=== PATIENT | female | born 1955 | race Caucasian/White ===

== ENCOUNTER 2023-04-17 22:02 | Emergency (ER) | payer MEDICARE, SELFPAY ==
[2023-04-17 22:06] VITALS: BP 183/92; PULSE 84; RESP 18; TEMP 36.8; O2SAT 98; BMI 23.0
[2023-04-17 22:30] VITALS: PULSE 76
--- NOTE | 2023-04-17 22:53 | ED_ITS ---
HPI - Arrhythmia/Palpitations General Chief Complaint: Arrhythmia/Palpitations Stated Complaint: heart is racing Time Seen by Provider: 04/17/23 22:19 History of Present Illness HPI narrative: This 67-year-old female comes in reporting feeling that her heart rate is increased. She states that there are times where it is pounding and seems to be going fast. She does not report any significant irregularity in its rhythm. She does report anxiety symptoms. She also wonders if this could be happening after taking alcohol. She does not drink excessive amounts but wonders if 1 or 2 beers might trigger such symptoms. However she has not had any alcohol for the past couple days or more. At the time I was visiting her she stated that she was now feeling this increased heart rate that she was describing. A monitor was showing normal sinus rhythm and rate at around 75-80 beats per minute. She does not report any chest pain or exercise intolerance. She did have 2 of her 4 parathyroid glands removed a few months ago and states that lab results in this regard are normal. Related Data Home Medications Medication Instructions Recorded Confirmed amlodipine 5 mg tablet 5 mg PO DAILY 04/17/23 04/17/23 furosemide 20 mg tablet 20 mg PO QAM 04/17/23 04/17/23 potassium chloride 10 mEq 10 meq PO DAILY 04/17/23 04/17/23 tablet,extended release rosuvastatin 5 mg tablet 5 mg PO QPM 04/17/23 04/17/23 triamterene 75 1 tab PO QAM 04/17/23 04/17/23 mg-hydrochlorothiazide 50 mg tablet Allergies Allergy/AdvReac Type Severity Reaction Status Date / Time Sulfa (Sulfonamide AdvReac Verified 04/17/23 22:09 Antibiotics) Review of Systems Status of ROS: Reports: 10 or more systems reviewed and unremarkable except as noted in History and below Narrative: Constitutional: No fevers, no weight gain or loss. Eyes: No discharge. No vision changes. HENT: No congestion, no sore throat, no ear pain. Cardiovascular: No chest pain. She reports palpitations and increased heart rate at times. Respiratory: No shortness of breath, no wheezes, no cough. Gastrointestinal: No abdominal pain, no vomiting, no diarrhea. Genitourinary: No dysuria, no hematuria. Musculoskeletal: Normal range of motion. Skin: No rashes, no pruritis. Neurological: No dizziness, weakness, sensory change, speech change. Endo/Heme/Allergies: No bruising or bleeding. No polydipsia. Pysch: no suicidality, no anxiety, no insomnia. All other systems reviewed and are negative. Exam Narrative: Exam Narrative: Constitutional: Well-developed, well-nourished, no acute distress. HEENT: Normocephalic, atraumatic. Neck: Normal range of motion. Nontender. Supple. Heart: Regular. No murmurs. Normal rate. Intact distal pulses. Lungs: Clear to auscultation. No chest discomfort. No wheezes, rhonchi, or rales. Abdomen: Normal bowel sounds. Nontender. No rebound tenderness. Genitalia: Deferred. Back: No midline tenderness. Normal range of motion. Extremities: Normal range of motion. No injury. Skin: Intact. No rash. Warm. No erythema or pallor. Neurologic: No altered sensation. No weakness. Alert and oriented. Psychiatric: No suicidality. No insomnia. Nursing notes and vitals signs are reviewed. Const: Vital Signs, click to edit/add: Vital Signs - 24 hr 04/17/23 22:06 Temperature 98.3 F Pulse Rate [Left P ulse Oximeter] 84 Respiratory Rate 18 Blood Pressure [Ri ght Upper Arm] 183/92 H Pulse Oximetry 98 Oxygen Delivery Me thod Room Air Course Vital Signs Vital signs: Initial Vital Signs Temperature 98.3 F 04/17/23 22:06 Temperature Source Temporal Artery Scan 04/17/23 22:06 Pulse Rate 84 04/17/23 22:06 Respiratory Rate 18 04/17/23 22:06 Blood Pressure 183/92 H 04/17/23 22:06 Blood Pressure Mean 122 H 04/17/23 22:06 Blood Pressure Position Sitting 04/17/23 22:06 Pulse Oximetry 98 04/17/23 22:06 Oxygen Delivery Method Room Air 04/17/23 22:06 Vital Signs Temperature 98.3 F 04/17/23 22:06 Pulse Rate 84 04/17/23 22:06 Respiratory Rate 18 04/17/23 22:06 Blood Pressure 183/92 H 04/17/23 22:06 Pulse Oximetry 98 04/17/23 22:06 Oxygen Delivery Method Room Air 04/17/23 22:06 Temperature 98.3 F 04/17/23 22:06 Pulse Rate 84 04/17/23 22:06 Respiratory Rate 18 04/17/23 22:06 Blood Pressure 183/92 H 04/17/23 22:06 Pulse Oximetry 98 04/17/23 22:06 Oxygen Delivery Method Room Air 04/17/23 22:06 MDM - Arrhythmia/Palpitations MDM Narrative Medical decision making narrative: This patient has feelings of palpitations that she is sometimes more aware of at night when she is remaining still. EKG today shows normal sinus rhythm and rate. I had discussion with the patient about various causes of feeling of palpitations. She is reassured with the EKG and vital signs that are measured here today. I did discuss other lab and imaging options which she declined in a process of shared decision making. I did state that there is a value in wearing a monitor such as a Holter monitor or Zio patch. The patient does have an appointment with her primary physician tomorrow where these options can be explored further. ECG Data Attestation: I personally reviewed and interpreted this ECG as follows: Interpretation: Normal sinus rhythm. Rate is 81 beats per minute. There are no ST or T-wave abnormalities. Discharge Plan Discharge Clinical Impression: Palpitations Condition: Stable Additional Instructions: Follow-up with primary physician tomorrow as scheduled and consider Holter monitor or Zio patch. Return if worsening. Prescriptions: No Action potassium chloride 10 mEq tablet extended release 10 meq PO DAILY amlodipine 5 mg tablet 5 mg PO DAILY furosemide 20 mg tablet 20 mg PO QAM triamterene-hydrochlorothiazid 75-50 mg tablet 1 tab PO QAM rosuvastatin 5 mg tablet 5 mg PO QPM Follow Up/Referrals: Leni Rasmussen MD [Staff Physician] - Stand Alone Forms: [employer] Info Instructions
[2023-04-17 23:00] VITALS: PULSE 81
== END 2023-04-17 23:08 | disposition home or self-care (01) ==
PROVIDERS: Emergency Provider Emergency Medicine Emergency Medical Services; PCP Family Medicine
DX: R00.2 Palpitations (principal)
CPT/HCPCS: 99283; 99284